=== PATIENT | female | born 1985 | race Caucasian/White ===

== ENCOUNTER 2018-06-16 06:37 | Emergency (ER) | payer OTHER ==
[2018-06-16] MEDS ORDERED: diphenhydrAMINE 25 MG CAPSULE PO STA (07:27)
--- NOTE | 2018-06-16 07:31 | ED Physician Documentation ---
PD HPI SKIN - Stated complaint Stated Complaint: SWOLLEN MOUTH - Chief complaint Chief Complaint: General - History obtained from History obtained from: Patient, Family (spouse) - History of Present Illness Timing - duration: Weeks Timing - details: Waxing and waning Location: Face Quality / character: Itchy, Swelling Contributing factors: Unknown Similar symptoms before: Has not had sx before - Treatment prior to arrival Treatment prior to arrival: Ermelinda without relief. - Additional information Additional information: The patient is a 32-year-old female who presents with swollen lip that she first noticed more than 1 week ago, and it has been waxing and waning since that time. She has had hives intermittently for the past month or more. She reports associated itching. She denies fever, cough, shortness of breath, or sore throat. She has been using half doses of Ermelinda usually with slight improvement, but this morning without any relief. She moved here from [place] just prior to the onset of her symptoms, and initially thought it was due to change in the weather. Her last menstrual period was 1 month ago. Review of Systems Constitutional: denies: Fever Eyes: denies: Discharge Ears: denies: Ear pain Nose: denies: Congestion Throat: denies: Sore throat Cardiac: denies: Chest pain / pressure Respiratory: denies: Dyspnea, Cough GI: denies: Nausea, Vomiting : reports: LMP, Vaginal bleeding (1 month ago.). denies: Dysuria Skin: reports: Rash, Other (Swollen lips.) Musculoskeletal: denies: Back pain, Extremity pain, Extremity swelling Neurologic: denies: Focal weakness, Numbness, Headache PD PAST MEDICAL HISTORY - Past Medical History Past Medical History: No Endocrine/Autoimmune: None - Past Surgical History Past Surgical History: No - Present Medications Home Medications: Ambulatory Orders Medication Instructions Recorded Confirmed Norgestimate-Ethinyl Estradiol 1 tab PO DAILY 06/16/18 06/16/18 [Tri-Sprintec Tablet] predniSONE [Prednisone] 40 mg PO DAILY #10 tablet 06/16/18 - Allergies Allergies/Adverse Reactions: Allergies Allergy/AdvReac Type Severity Reaction Status Date / Time No Known Drug Allergies Allergy Verified 06/16/18 07:32 - Social History Does the pt smoke?: No Smoking Status: Never smoker Does the pt drink ETOH?: Yes ETOH Use: Wine Does the pt have substance abuse?: No - Immunizations Immunizations are current?: Yes - POLST Patient has POLST: No PD ED PE NORMAL - Vitals Vital signs reviewed: Yes (normal) - General General: Alert and oriented X 3, Well developed/nourished - HEENT HEENT: Atraumatic, Pharynx benign, Other (Swelling of the lips, more the left upper lip than the lower lip.) - Neck Neck: Supple, no meningeal sign, No adenopathy - Cardiac Cardiac: RRR, No murmur - Respiratory Respiratory: No respiratory distress, Clear bilaterally - Abdomen Abdomen: Soft, Non tender - Back Back: No CVA TTP - Derm Derm: Other (Faint erythematous rash at upper forehead, along hair line.) - Extremities Extremities: No edema, No calf tenderness / cord - Neuro Neuro: Alert and oriented X 3, No motor deficit, No sensory deficit Results - Vitals Vitals: Vital Signs - 24 hr 06/16/18 09:50 Heart Rate 71 Respiratory 15 Rate Blood Pressure 117/74 O2 Saturation 99 Oxygen O2 Source Room air - Labs Labs: Laboratory Tests 06/16/18 06/16/18 06/16/18 07:51 07:51 07:51 WBC 5.1 RBC 4.50 Hgb 12.1 Hct 36.8 L MCV 81.8 MCH 26.8 L MCHC 32.8 RDW 14.5 Plt Count 346 MPV 8.0 Neut # (Auto) 3.7 Lymph # (Auto) 1.1 L Tripp # (Auto) 0.3 Eos # (Auto) 0.0 Baso # (Auto) 0.0 Absolute Nucleated RBC 0.00 Nucleated RBC % 0.0 ESR 29 H Sodium 135 Potassium 3.6 Chloride 104 Carbon Dioxide 23 Anion Gap 8.0 BUN 10 Creatinine 0.7 Estimated GFR (MDRD) 97 Glucose 95 Calcium 8.8 Total Bilirubin 0.5 AST 18 ALT 14 Alkaline Phosphatase 88 C-Reactive Protein Total Protein 7.2 Albumin 3.6 Globulin 3.6 Albumin/Globulin Ratio 1.0 Lipase 25 Urine Color Urine Clarity Urine pH Ur Specific [place] Urine Protein Urine Glucose (UA) Urine Ketones Urine Occult Blood Urine Nitrite Urine Bilirubin Urine Urobilinogen Ur Leukocyte Esterase Urine RBC Urine WBC Ur Squamous Epith Cells Urine Bacteria Ur Microscopic Review Urine Culture Comments Urine HCG, Qual 06/16/18 06/16/18 06/16/18 07:51 07:55 07:55 WBC RBC Hgb Hct MCV MCH MCHC RDW Plt Count MPV Neut # (Auto) Lymph # (Auto) Tripp # (Auto) Eos # (Auto) Baso # (Auto) Absolute Nucleated RBC Nucleated RBC % ESR Sodium Potassium Chloride Carbon Dioxide Anion Gap BUN Creatinine Estimated GFR (MDRD) Glucose Calcium Total Bilirubin AST ALT Alkaline Phosphatase C-Reactive Protein 1.8 H Total Protein Albumin Globulin Albumin/Globulin Ratio Lipase Urine Color YELLOW Urine Clarity HAZY Urine pH 5.5 Ur Specific [place] 1.010 1.010 Urine Protein NEGATIVE Urine Glucose (UA) NEGATIVE Urine Ketones NEGATIVE Urine Occult Blood NEGATIVE Urine Nitrite NEGATIVE Urine Bilirubin NEGATIVE Urine Urobilinogen 0.2 (NORMAL) Ur Leukocyte Esterase NEGATIVE Urine RBC 0-5 Urine WBC 4-5 Ur Squamous Epith Cells MANY Squamous H Urine Bacteria Many H Ur Microscopic Review INDICATED Urine Culture Comments NOT INDICATED Urine HCG, Qual NEGATIVE PD MEDICAL DECISION MAKING - ED course Complexity details: reviewed results, re-evaluated patient, considered differential, d/w patient, d/w family ED course: The cause of the patient's rash and swollen lip is uncertain. It is most likely allergic reaction versus autoimmune inflammation. Her C-reactive protein is slightly elevated at 1.8, and her erythrocyte sedimentation rate is also slightly elevated at 29. Labs are otherwise unremarkable. Treatment in the emergency department included administration of dexamethasone 10 mg orally, and Benadryl 50 mg orally. She is being discharged with a prescription for prednisone. I discussed with her and her symptomatic treatment, outpatient follow-up, as well as potentially worrisome signs or s ymptoms that should prompt reevaluation in the emergency department. Departure - Departure Disposition: 01 Home, Self Care Clinical Impression: Rash due to allergy Condition: Stable Instructions: ED Dermatitis Non Specific Rash Follow-Up: [facility] [Provider Group] Prescriptions: predniSONE [Prednisone] 40 mg PO DAILY #10 tablet Comments: You can take Benadryl, up to 50 mg 3 times daily if needed for rash or itching. Take prednisone daily for 5 days as prescribed. Follow-up with your primary physician within 1-2 weeks. Call to schedule an appointment. Return to the emergency department if you develop increasing rash, increasing swelling, shortness of breath, or otherwise worsening symptoms. Discharge Date/Time: 06/16/18 09:51
[2018-06-16 08:06] LABS: BASOPHILS % (AUTO) 0.5 %; EOSINOPHILS % (AUTO) 0.3 %; HGB - HEMOGLOBIN 12.1 g/dL (12.0-16.0); LYMPHOCYTES # (AUTO) 1.1 10^3/uL (1.5-3.5); MEAN CORPUSCULAR HEMOGLOBIN 26.8 pg (27.0-31.0); MEAN CORPUSCULAR HGB CONC 32.8 g/dL (32.0-36.0); MEAN CORPUSCULAR VOLUME 81.8 fL (81.0-99.0); MONOCYTES # (AUTO) 0.3 10^3/uL (0.0-1.0); MONOCYTES % (AUTO) 6.7 %; NEUTROPHILS # (AUTO) 3.7 10^3/uL (1.5-6.6); NEUTROPHILS % (AUTO) 71.5 %; PLT - PLATELET COUNT 346 10^3/uL (130-450); RED CELL DISTRIBUTION WIDTH 14.5 % (12.0-15.0); WHITE BLOOD COUNT 5.1 x10^3/uL (4.8-10.8)
[2018-06-16 08:25] LABS: BILIRUBIN,URINE NEGATIVE (NEGATIVE); GLUCOSE, URINE (UA) NEGATIVE (NEGATIVE); KETONES,URINE (UA) NEGATIVE (NEGATIVE); LEUKOCYTE ESTERASE, URINE NEGATIVE (NEGATIVE); NITRITE,URINE NEGATIVE (NEGATIVE); OCCULT BLOOD,URINE NEGATIVE (NEGATIVE); PH,URINE 5.5 PH (5.0-7.5); PROTEIN,URINE NEGATIVE (NEGATIVE); UROBILINOGEN,URINE 0.2 (NORMAL) E.U./dL (NORMAL)
[2018-06-16 08:25] LABS: ALBUMIN 3.6 g/dL (3.2-5.5); BILIRUBIN,TOTAL 0.5 mg/dL (0.2-1.0); CALCIUM 8.8 mg/dL (8.5-10.3); CREATININE 0.7 mg/dL (0.4-1.0); TOTAL PROTEIN 7.2 g/dL (6.7-8.2)
[2018-06-16 08:28] LABS: CLARITY,URINE HAZY (CLEAR)
[2018-06-16 08:29] LABS: HCG UR QUAL NEGATIVE
[2018-06-16 08:36] LABS: BACTERIA,URINE Many /HPF (None Seen); RBC,URINE 0-5 /HPF (0-5); SQUAMOUS EPITHELIAL CELL,UR MANY Squamous (<= Few)
[2018-06-16 09:02] VITALS: BP 117/74
[2018-06-16] MEDS ORDERED: DEXAMETHASONE 10 MG/ML VIAL PO STA (09:37)
== END 2018-06-16 09:51 | disposition home or self-care (01) ==
LOC: ED 06:37
DX: R21 Rash and other nonspecific skin eruption (principal); T78.40XA Allergy, unspecified, initial encounter; X58.XXXA Exposure to other specified factors, initial encounter; R79.82 Elevated C-reactive protein (CRP)
CPT/HCPCS: 36415; 80053; 81001; 81025; 83690; 85025; 85651; 86140; 99283; A9270; 81003; 87086